=== PATIENT | male | born 1985 | race African-American/Black ===

== ENCOUNTER 2025-02-23 08:52 | Emergency (ER) | payer OTHER ==
[~2025-02-23] VITALS: Ht 175.3 cm; Wt 118.2 kg
[2025-02-23 09:00] VITALS: TEMP 98.1
[2025-02-23] MEDS ORDERED: ACET-3385 PO (09:06)
[2025-02-23] MEDS: KETOROLAC TROMETHAMINE 30 MG/ML VIAL IM ONE (12:04)
[2025-02-23] MEDS: LIDOCAINE 5% TRANSDERMAL PATCH TD ONE (12:04)
[2025-02-23] MEDS ORDERED: LOSA-382 PO (12:09)
[2025-02-23] MEDS ORDERED: CHOL200074 PO (12:09)
[2025-02-23] MEDS ORDERED: POLY510P31 PO (12:09)
[2025-02-23] MEDS ORDERED: AMLO10TA55 PO (12:09)
[2025-02-23] MEDS ORDERED: SEMA1PEN5 SQ (12:09)
[2025-02-23 12:47] VITALS: BP 141/99; PULSE 87; RESP 18; O2SAT 98
== END 2025-02-23 12:52 | disposition home or self-care (01) ==
LOC: EMS 08:52
DX: S39.012A Strain of muscle, fascia and tendon of lower back, initial encounter (principal); F17.210 Nicotine dependence, cigarettes, uncomplicated; Z79.899 Other long term (current) drug therapy; X58.XXXA Exposure to other specified factors, initial encounter; Y93.89 Activity, other specified; Y92.89 Other specified places as the place of occurrence of the external cause; Y99.8 Other external cause status
CPT/HCPCS: 99283; 96372; J1885